=== PATIENT | female | born 1980 | race Caucasian/White ===

== ENCOUNTER 2016-04-12 00:38 | Emergency (ER) | payer OTHER ==
[~2016-04-12] VITALS: Ht 160 cm; Wt 90.5 kg
[2016-04-12 00:46] VITALS: Ht 160 cm; Wt 90.5 kg
[2016-04-12 07:26] LABS: ADD UMIC YES; URINE BILIRUBIN (Dip) NEGATIVE (NEGATIVE); URINE BLOOD (Dip) 1+ (NEGATIVE); URINE COLOR YELLOW (YELLOW); URINE GLUCOSE (Dip) NEGATIVE (NEGATIVE); URINE KETONES (Dip) NEGATIVE (NEGATIVE); URINE LEUKOCYTE ESTERASE (Dip) 3+ (NEGATIVE); URINE NITRITE (Dip) POSITIVE (NEGATIVE); URINE TOTAL PROTEIN (Dip) NEGATIVE (NEGATIVE); URINE UROBILINOGEN (Dip) 0.2 E.U./dL (0.1-1.0)
[2016-04-12 07:40] LABS: BACTERIA,URINE MODERATE; URINE RBCS 0-2 /HPF (0)
[2016-04-12] MEDS ORDERED: CIPR500T4 PO (07:46)
[2016-04-12] MEDS ORDERED: CEFTRIAXONE 1 GM INJ IM ONE (08:00)
[2016-04-12] MEDS ORDERED: LIDOCAINE 1% (MDV) 20 ML INJ SC ONE (08:00)
--- NOTE | 2016-04-12 09:39 | ERD ---
DATE OF SERVICE: ATTENDING PHYSICIAN: Dr. Martinez. HISTORY OF PRESENT ILLNESS: The patient is a 35-year-old female coming in complaining of back pain, bilateral lower back pain with suprapubic pain, dysuria, and malodorous urine. She states she has also had a tactile fever for the last 5 days. She states that she did document her fever a few days ago at 102.4. She has not taken any medication today. She is afebrile today. She states that sh e has had no history of STDs. She is in a monogamous relationship. No blood in her urine, no vomit ing, no changes in bowel movement. She states that her dysuria has been going on for the last 2 wee ks; however, it seems to be worsening over the last few days. PAST MEDICAL HISTORY: Denies. ALLERGIES TO MEDICATIONS: DENIES. PAST SURGICAL HISTORY: . SOCIAL HISTORY: Denies. REVIEW OF SYSTEMS: A 12-point review of systems was done. Refer to HPI for positives, all other sy stems negative. PHYSICAL EXAMINATION VITAL SIGNS: Her temperature is 99.8, pulse 98, blood pressure is 131/72, respiratory rate 18, O2 s at is 96% on room air. Pain intensity is 7/10. GENERAL: Patient is well-appearing, well-nourished, no acute distress. HEART: Regular rate and rhythm. No murmurs, clicks, rubs or gallops. No S3 or S4. CHEST: Clear to auscultation bilaterally. There are no rales, wheezes or rhonchi. HEENT: Atraumatic. Conjunctivae are pink. Pupils equal, round, and reactive to light. There is no s cleral icterus. Tympanic membranes clear bilaterally. Oropharynx clear. No nystagmus or photophobia . ABDOMINAL EXAM: Normoactive bowel sounds to auscultation. No distention, no organomegaly. Patient has mild tenderness to palpation over the suprapubic region, but is not lateralized to the right or left lower quadrant. BACK: Patient has CVA tenderness noted in the lower right and left back. EMERGENCY ROOM COURSE: The patient had a urinalysis checked in the ER that showed 3+ leukocytes wit h over 200 white blood cells, positive nitrites, 1+ hemoglobin. Patient's urine was sent for cultur e. Patient was given IM injection of 1 gram of Rocephin. DIAGNOSIS: Pyelonephritis. MEDICAL DECISION MAKING: Patient's exam and urine was positive for possible pyelonephritis. She is afebrile today. She is nontoxic appearing. However, I am concerned that patient may have pyelonep hritis and I did not feel there was indication for blood work and imaging. I have low suspicion for nephrolithiasis, as patient is not having sharp/stabbing pain in the flank. I have low suspicion f or pelvic emergency, as patient's lower abdominal exam is nonconcurring and patient is not complaini ng of pelvic pain. DISCHARGE: The patient is discharged stable. Patient given prescription for Cipro for 7 days to [facility] for pyelonephritis. Patient was told if symptoms progress or worsen to return to the ER. All o ther questions answered at time of discharge. Discharge summary given at the time of departure. Isac pabon understood and complied with plan. Dictated By: DEON ROBERTS for JOHN HARTMANN/INGRID Conf#: [id number] DID#: [id number]
== END 2016-04-12 08:01 | disposition home or self-care (01) ==
LOC: FTE 00:38
DX: N10 Acute pyelonephritis (principal)
CPT/HCPCS: 81001; 87086; 96372; J0696; Z7502; Z7610; 81003